=== PATIENT | female | born 1985 | race Caucasian/White ===

== ENCOUNTER 2016-08-13 15:26 | Emergency (ER) | payer OTHER ==
[2016-08-13 15:36] VITALS: BP 155/88
--- NOTE | 2016-08-13 16:03 | UC ---
Ear Complaint HPI - HPI Summary HPI Summary: right ear pain for 2 days--no fevers - History of Current Complaint Chief Complaint: UCEar Stated Complaint: EAR ACHE Time Seen by Provider: 08/13/16 15:50 Hx Obtained From: Patient Hx Last Menstrual Period: Might has missed period recently which is common for her ?: No Onset/Duration: Sudden Onset, Lasting Days - 2, Still Present Severity Initially: Moderate Severity Currently: Moderate Pain Intensity: 6 Pain Scale Used: 0-10 Numeric Aggravating Factors: Nothing Alleviating Factors: Nothing - Allergies/Home Medications Allergies/Adverse Reactions: Allergies Allergy/AdvReac Type Severity Reaction Status Date / Time No Known Allergies Allergy Verified 08/13/16 15:37 Home Medications: Home Medications Fexofenadine (NF) [Fifi (NF)] 60 mg PO DAILY 08/13/16 [History Confirmed ] PMH/Surg Hx/FS Hx/Imm Hx Previously Healthy: Yes Endocrine History Of: Denies: Diabetes, Thyroid Disease Cardiovascular History Of: Denies: Cardiac Disorders, Hypertension Respiratory History Of: Denies: COPD, Asthma GI/ History Of: Denies: Ulcer - Surgical History Surgical History: None - Family History Known Family History: Positive: None - Social History Occupation: Employed Full-time Lives: With Family Alcohol Use: Occasionally Substance Use Type: None Smoking Status (MU): Never Smoked Tobacco Review of Systems Constitutional: Negative Skin: Negative Eyes: Negative ENT: Ear Ache - right Respiratory: Negative Cardiovascular: Negative Gastrointestinal: Negative Genitourinary: Negative Motor: Negative Neurovascular: Negative Musculoskeletal: Negative Neurological: Negative Psychological: Negative All Other Systems Reviewed And Are Negative: Yes Physical Exam Triage Information Reviewed: Yes Appearance: Well-Appearing, No Pain Distress, Obese Vital Signs: Initial Vital Signs Temp 98.2 F 08/13/16 15:32 Pulse 93 08/13/16 15:32 Resp 16 08/13/16 15:32 BP 155/88 08/13/16 15:32 Pulse Ox 99 08/13/16 15:32 Vital Signs Reviewed: Yes Eye Exam: Normal Eyes: Positive: Conjunctiva Clear ENT Exam: Normal ENT: Positive: Normal ENT inspection, Hearing grossly normal, Pharynx normal, TM red - right. Negative: Nasal congestion, Nasal drainage, Tonsillar swelling , Tonsillar exudate, Trismus, Muffled/hoarse voice Dental Exam: Normal Neck exam: Normal Neck: Positive: Supple, Nontender, No Lymphadenopathy Respiratory Exam: Normal Respiratory: Positive: Chest non-tender, Lungs clear, Normal breath sounds, No respiratory distress, No accessory muscle use Cardiovascular Exam: Normal Cardiovascular: Positive: RRR, No Murmur, Pulses Normal, Brisk Capillary Refill Musculoskeletal Exam: Normal Musculoskeletal: Positive: Strength Intact, ROM Intact, No Edema Neurological Exam: Normal Neurological: Positive: Alert, Muscle Tone Normal Psychological Exam: Normal Skin Exam: Normal Ear Complaint Course/Dx - Course Course Of Treatment: Amoxicillin, ibuprofen, increase fluids, follow with pcp - Differential Dx/Diagnosis Differential Diagnosis/HQI/PQRI: Cellulitis, Cerumen Impaction, Otitis Media, URI Provider Diagnoses: R otitis Media Discharge - Discharge Plan Condition: Stable Disposition: HOME Prescriptions: Amoxicillin (*) [Amoxicillin 875 MG (*)] 875 mg PO BID #20 tab Patient Education Materials: Otitis Media (ED), DASH Eating Plan (ED), Hypertension (ED) Referrals: Lizz Ace RN [Primary Care Provider] - 2 Weeks
== END 2016-08-13 16:12 | disposition home or self-care (01) ==
LOC: UCEAST 15:26
DX: H66.91 Otitis media, unspecified, right ear (principal)
CPT/HCPCS: 99212; G0463